=== PATIENT | female | born 1965 | race Caucasian/White ===

== ENCOUNTER 2016-09-08 18:39 | Emergency (ER) | payer SELFPAY ==
[~2016-09-08] VITALS: Ht 170.2 cm; Wt 91.0 kg
[~2016-09-08 18:39] MED LIST: AMIO400T4 PO; CARV6.2512 PO; HYDR-882 PO; IBUP-1222 PO; SUMA25TA3 PO; ZOLP12.52 PO
[2016-09-08] MEDS ORDERED: SODIUM CHLORIDE FLUSH 10ML SYR IVF ONE (19:00)
[2016-09-08] MEDS ORDERED: SODIUM CHLORIDE 0.9% 1,000ML IVBOLUS ONE (19:00)
[2016-09-08 19:18] LABS: BLOOD UREA NITROGEN 10 mg/dL (7-18)
[2016-09-08 19:23] LABS: IS PT STATUS REG ER OR PRE ER? YES
[2016-09-08 21:27] VITALS: BP 164/68
== END 2016-09-08 21:29 | disposition home or self-care (01) ==
LOC: ED 21:20
DX: R55 Syncope and collapse (principal); I10 Essential (primary) hypertension
CPT/HCPCS: 36415; 71010; 80048; 81001; 82040; 84484; 85025; 93005; 99285; J7030